=== PATIENT | female | born 1990 | race Caucasian/White ===

== ENCOUNTER 2019-05-06 20:23 | Inpatient (IN) | payer OTHER ==
[~2019-05-06] VITALS: Ht 154.9 cm; Wt 61.0 kg
[2019-05-06 20:28] VITALS: Ht 154.9 cm; Wt 61.0 kg
--- NOTE | 2019-05-06 20:33 | NUR ---
EKG IN PROGRESS.
--- NOTE | 2019-05-06 20:56 | NUR ---
PATIENT AAOX4 PRESENTS TO THE ED WITH C/O MIDSTERNAL CHEST PAIN THAT STARTED ABOUT AN HOUR AGO. PATIENT STATES SHE HAS BEEN SICK FOR SEVERAL WEEKS WITH A COUGH AND WENT TO [facility] TREATED HER WITH A BREATHING TX AND SENT HER HOME. PT WAS ADVISED THAT SHE HAD "AN INFECTION" BUT WAS NOT TOLD WHAT TYPE. PATIENT LUNG SOUNDS CLEAR IN UPPER AND LOWER LOBES. PT HAS DRY COUGH WITH INTERMITTENT CLEAR PHLEGM PER PATIENT. PATIENT WAS PLACED IN GOWN ON GURNEY AND ON ALL MONITORS FOR FURTHER OBSERVATION. WILL CONTINUE TO MONITOR.
--- NOTE | 2019-05-06 21:40 | NUR ---
PLACED 20 G IV TO R AC- IV PATENT- NO S/S OF INFILTRATION- FLUSHED WITH 10 ML NS.
[2019-05-06 21:44] LABS: BASOPHIL % 0.6 % (0-2); PLATELET COUNT 395 x10^3mcL (130-400); RED CELL DISTRIBUTION WIDTH 12.9 % (11.5-14.5)
[2019-05-06 21:59] LABS: microscopic required? YES; urine erythrocyte 2+ (NEGATIVE)
--- NOTE | 2019-05-06 21:59 | NUR ---
MEDICATED WITH NS BOLUS PER MD ORDERS. WILL CONTINUE TO MONITOR.
[2019-05-06 22:03] LABS: BILIRUBIN TOTAL 0.15 mg/dL (0.20-1.00); CALCIUM 8.8 mg/dL (8.5-10.1); CARBON DIOXIDE 19.1 mmol/L (21-32); POTASSIUM SERUM 3.9 mmol/L (3.5-5.1)
[2019-05-06 22:05] LABS: ALBUMIN 2.6 g/dL (3.4-5.0)
[2019-05-06 22:08] LABS: CREATININE SERUM 6.1 mg/dL (0.6-1.0)
--- NOTE | 2019-05-06 22:26 | NUR ---
STARTED IV ATBX TREATMENT PER MD ORDERS.
--- NOTE | 2019-05-06 22:31 | NUR ---
CONTACTED BY LAB THAT THEY RE RAN THE SODIUM AND LEVEL AND CAME BACK NORMAL 139.
--- NOTE | 2019-05-06 22:39 | NUR ---
PATIENT LYING ON GURNEY- BREATHING EVEN AND UNLABORED. NO SS OF DISTRESS NOTED.
--- NOTE | 2019-05-06 23:26 | NUR ---
PROVIDED REPORT TO JOSEPH SERRA FOR CONTINUED CARE OF PATIENT.
--- NOTE | 2019-05-06 23:45 | NUR ---
RECEIVED PT FROM ED VIA [facility], CAME IN DUE TO CHEST PAIN. AAOX4, DENIES HEADACHE/DIZZINESS. ABLE TO FOLLOW COMMANDS. C/O MILD SOB, WORSE ON AMBULATION, O2 ORA=900%, RA. STATED THAT SHE HAS 6/10 RIGHT SIDED CHEST PAIN WORSE ON COUGHING DESCRIBED SHARP AND THROBBING. NSR ON THE MONITOR. C/O MILD SOB WORSE ON AMBULATION. STATED THAT SHE HAS PRODUCTIVE COUGH, ABLE TO EXPECTORATE GREEN, CLEAR AND DARK BROWN SPUTUM. DENIES ABDOMINAL DISCOMFORT. BOWEL SOUNDS ACTIVE. IV SITE IS PATENT AND INTACT. SIDE RAILS UPX2. CALL LIGHT ON REACH. ENDORSED TO PRIMARY NURSE MARYSE INCLUDING JA=[phone]
[2019-05-06 23:55] VITALS: BP 164/83
[2019-05-07] MEDS ORDERED: NIFEDIPINE60 MG PO (00:16)
[2019-05-07] MEDS ORDERED: BENAZEPRIL HYDR20 M1 PO (00:16)
[2019-05-07] MEDS ORDERED: LANTUS SOLOS100 U/M1 SQ (00:17)
[2019-05-07] MEDS ORDERED: LASIX40 MG PO (00:17)
[2019-05-07] MEDS ORDERED: NOVOLOG FLEX100 U/M1 SQ (00:18)
--- NOTE | 2019-05-07 01:52 | NUR ---
PT IS RESTING IN BED WITH EYES CLOSED. NO ACUTE DISTRESS NOTED. PT HAS BEEN CALM AND COOPERATIVE WITH CARE AT THIS TIME. SAFETY AND COMFORT MEASURES MAINTAINED, BED IN LOWEST POSITION, CALL LIGHT WITHIN REACH.
[2019-05-07 02:48] LABS: MAGNESIUM 2.1 mg/dL (1.8-2.4); PHOSPHOROUS 5.2 mg/dL (2.5-4.9)
[2019-05-07 02:52] LABS: CHOLESTEROL/HDL RATIO 3.7
[2019-05-07 02:55] LABS: T3 TOTAL 0.94 ng/mL
[2019-05-07 02:58] LABS: FREE T4 0.92 ng/dL (0.76-1.46); FREE THYROXINE INDEX 2.1 ug/dL (1.4-4.5); T4(THYROXINE) 5.8 ug/dL (4.7-13.3)
[2019-05-07 04:33] LABS: AMPHETAMINE QUAL UR NONE DETECTED (See below)
--- NOTE | 2019-05-07 05:06 | NUR ---
PT HAS RESTED IN LONG INTERVALS THROUGHOUT THE SHIFT. PT HAS BEEN CALM AND COOPERATIVE WITH CARE. NO ACUTE DISTRESS NOTED. NO COMPLAINT OF PAIN AT THIS TIME. IV INFUSING AND INTACT. SAFETY AND COMFORT MEASURES MAINTAINED, BED IN LOWEST POSITION, CALL LIGHT WITHIN REACH. WILL ENDORSE CONTINUITY OF CARE TO THE ONCOMING RN.
[2019-05-07 05:57] VITALS: BP 146/96
[2019-05-07 06:27] LABS: BASOPHIL % 0.5 % (0-2); PLATELET COUNT 343 x10^3mcL (130-400)
--- NOTE | 2019-05-07 07:30 | NUR ---
PATIENT RESTING IN BED, NO ACUTE DISTRESS NOTED. PATIENT ON ROOM AIR. PATIENT C/O SHARP CHEST PAIN 4/10, PATIENT STATES PAIN IS TOLARABLE. DENEIS SOB, COUGH NOTED. PATIENT IS AMBULATORY, NO WEAKNESS NOTED. NS IV INFUSING TO RAC AT 100ML/HR, IV SITE CDI & PATENT, NO S/S OF INFILTRATION. CALL LIGHT WITHIN REACH, BED IN LOW POSITION. WILL CONTINUE TO MONITOR FOR CAHNGES.
[2019-05-07 07:45] LABS: CALCIUM 8.3 mg/dL (8.5-10.1); CARBON DIOXIDE 16.9 mmol/L (21-32); CREATININE SERUM 5.5 mg/dL (0.6-1.0); POTASSIUM SERUM 3.9 mmol/L (3.5-5.1)
[2019-05-07 09:19] VITALS: BP 118/62
[2019-05-07 12:01] VITALS: BP 134/69
--- NOTE | 2019-05-07 13:00 | NUR ---
PATIENT RESTING IN BED, EATING. NO ACUTE DISTRESS NOTED. FAMILY AT BEDSIDE. PATIENT DENIES PAIN. TELE MONITOR IN PLACE. DENIES CHEST PAIN. CALL LIGHT WITHIN REACH, BED IN LOW POSITION. WILL CONTINUE TO MONITOR PATIENT.
[2019-05-07 16:04] VITALS: BP 128/64
--- NOTE | 2019-05-07 19:00 | NUR ---
RECEIVED PT IN BED RESTING. NO DISTRESS NOTED. C/O PAIN ON THE BACK. WILL MEDICATE ORDERED. IV SITE PATENT AND INTACT. BED IN LOWEST POSITION,CALL LIGHT WIHTIN REACH. WILL CONTINUE TO MONITOR.
--- NOTE | 2019-05-07 19:22 | NUR ---
PATIENT C/O OF MILD PAIN TO ABDOMEN, MEDICATED PATIENT WITH TYLENOL. NO ACUTE CHANGES NOTED THROUGH OUT SHIFT, PATIENT IS STABLE. TELE MONITOR IN PLACE. IV TO RAC SALINE LOCK, NO S/S OF INFILTRATION. CALL LIGHT WITHIN REACH, BED IN LOW POSITION. ENDORSED REPORT TO NIGHT NURSE.
[2019-05-07 20:59] VITALS: BP 128/71
--- NOTE | 2019-05-08 05:14 | NUR ---
PT APPEARS TO BE SLEEPING. NO DISTRESS NOTED.NO C/O PAIN AT THIS TIME.BED IN LOWEST POSITION,CALL LIGHT WITHIN REACH. WILL CONTINUE TO MONITOR.
[2019-05-08 05:24] VITALS: BP 136/75
[2019-05-08 06:30] LABS: BASOPHIL % 0.5 % (0-2); PLATELET COUNT 275 x10^3mcL (130-400); RED CELL DISTRIBUTION WIDTH 13.2 % (11.5-14.5)
[2019-05-08 06:31] LABS: IRON 68 ug/dL (50-170)
[2019-05-08 06:32] LABS: CALCIUM 7.9 mg/dL (8.5-10.1); CARBON DIOXIDE 18.1 mmol/L (21-32); POTASSIUM SERUM 4.5 mmol/L (3.5-5.1)
[2019-05-08 06:47] LABS: TOTAL IRON BINDING CAPACITY 121 ug/dL (250-450)
[2019-05-08 06:48] LABS: CREATININE SERUM 4.8 mg/dL (0.6-1.0)
--- NOTE | 2019-05-08 07:28 | NUR ---
CARE ENDORSED TO DAY NURSE FRAN.
--- NOTE | 2019-05-08 07:30 | NUR ---
RECEIVED PT FROM NIGHT NURSE. PT IS LAYING DOWN IN BED RESTING WITH EYES CLOSED. PT LOOKS TO BE IN NO ACUTE DISTRESS AT THIS TIME. RESPIRATIONS EVEN AND UNLABORED ON ROOM AIR. TELE MONITOR PRESENT. IV SITE PATENT WITH NO SIGNS OF ERYTHEMA OR SWELLING WITH IV H/L. BED IN LOWEST POSITION, CALL LIGHT WITHIN REACH. WILL CONTINUE TO MONITOR.
[2019-05-08 08:28] VITALS: BP 139/78
[2019-05-08 11:45] VITALS: BP 130/72
[2019-05-08] MEDS ORDERED: SODIUM BICARBO650 MG PO (13:13)
[2019-05-08] MEDS ORDERED: LAC PO (13:13)
[2019-05-08] MEDS ORDERED: KEFLEX500 M1 PO (13:13)
--- NOTE | 2019-05-08 14:00 | NUR ---
PT AWAKE, ALERT AND ORIENTED AND LOOKS TO BE IN NO ACUTE DISTRESS AT TIME OF DISCHARGE. PT DISCHARGED HOME AND WALKED TO [facility] ACCOMPANIED BY NURSE AND FAMILY MEMBERS WITH BELONGINGS IN HAND. EDUCATION AND PRESCRIPTIONS PROVIDED TO PT. INFORMED PT TO TAKE FULL COURSE OF ANTIBIOTICS, PT VERBALIZED UNDERSTANDING. FOLLOW UP APPOINTMENT MADE WITH PT PCP, PT VERBALIZED UNDERSTANDING OF THE IMPORTANCE OF GOING TO FOLLOW UP APPOINTMENT. IV REMOVED AND CATHETER FULLY INTACT. TELE MONITOR REMOVED AND RETURNED TO TELE STATION. ALL QUESTIONS AND CONCERNS ADDRESSED.
== END 2019-05-08 14:25 | disposition home or self-care (01) | DRG 203 ==
LOC: ED 20:23 → DU 22:43 → EDBEDREQ 22:46 → DU 23:54
PROVIDERS: Emergency Medicine; General Practice; ADMIT Internal Medicine
DX: M94.0 Chondrocostal junction syndrome [Tietze] (principal); N17.0 Acute kidney failure with tubular necrosis; E10.22 Type 1 diabetes mellitus with diabetic chronic kidney disease; E10.65 Type 1 diabetes mellitus with hyperglycemia; F17.210 Nicotine dependence, cigarettes, uncomplicated; N39.0 Urinary tract infection, site not specified; F12.10 Cannabis abuse, uncomplicated; Z79.4 Long term (current) use of insulin; Z82.49 Family history of ischemic heart disease and other diseases of the circulatory system; D64.9 Anemia, unspecified; I12.0 Hypertensive chronic kidney disease with stage 5 chronic kidney disease or end stage renal disease; N18.5 Chronic kidney disease, stage 5; F14.90 Cocaine use, unspecified, uncomplicated
CPT/HCPCS: 82962; 84439; 87804; 99406; G0378; J0696; J1815; J7030; Q0092